=== PATIENT | female | born 1955 | race Caucasian/White ===

== ENCOUNTER → 2019-06-27 12:44 | Outpatient (CLI) | payer BC, SELFPAY ==
--- NOTE | ~2019-06-27 | US_ITS ---
EXAMINATION: US soft tissue LE LT DATE: 06/27/2019 13:27 INDICATION: Left lower extremity localized swelling. TECHNIQUE: Multiple grayscale and Doppler ultrasound images of the left lower extremity were obtained . COMPARISON: Left knee radiographs 04/26/2020, left femur MRI 08/09/2018 FINDINGS: There is no abnormal mass in the patient's area of concern in left anterior thigh. IMPRESSION: 1. No abnormal mass in the patient's area of concern in left anterior thigh. Reviewed, dictated and finalized at location A. 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
--- NOTE | ~2019-06-27 | XR_ITS ---
XR lumbar spine 6V w bending 06/27/2019 13:27 Indication: Low back pain Procedure: 8 views of the lumbar spine including flexion/extension Comparison: No prior studies for comparison. Findings: There is mild disc narrowing at L4-5 and L5-S1. There are facet hypertrophic changes at the se levels with grade 1 degenerative spondylolisthesis at L4-5. No significant alteration of alignment with flexion/extension. Pedicles intact. Normal alignment. Sacral foramen are symmetric. Impression: 1: Mild-moderate lumbar spondylosis with grade 1 degenerative spondylolisthesis at L4-5. Reviewed, dictated and finalized at location A. 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
--- NOTE | ~2019-06-27 | XR_ITS ---
XR knee LT 2V DATE: 06/27/2019 13:27 INDICATION: Left knee pain TECHNIQUE: AP and lateral views COMPARISON: None FINDINGS: There is moderately prominent loss of joint space height at the medial compartment and mild periarticular spurring at the medial and patellofemoral compartments, consistent with osteoarthritis . There is mild distention of suprapatellar bursa consistent with joint effusion. Diffuse osteopenia. There is mild varus deformity. No fracture or dislocation, periosteal reaction or bone destruction, r adiopaque intra-articular loose body or chondrocalcinosis is detected. 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
== END ==
PROVIDERS: Visit Provider Nurse Practitioner Family
DX: M47.816 Spondylosis without myelopathy or radiculopathy, lumbar region (principal); M43.16 Spondylolisthesis, lumbar region; M85.80 Other specified disorders of bone density and structure, unspecified site; M17.12 Unilateral primary osteoarthritis, left knee; R22.42 Localized swelling, mass and lump, left lower limb
CPT/HCPCS: 72114; 73560; 76882